=== PATIENT | female | born 1940 | race Caucasian/White ===

== ENCOUNTER 2017-01-18 17:32 | Inpatient (IN) ==
[2017-01-18] MEDS ORDERED: FUROSEMIDE 40 MG/4 ML VIAL IV STA (17:57)
[2017-01-18] MEDS ORDERED: DILTIAZEM 50 MG/10 ML VIAL IV ONE (18:17)
[2017-01-18] MEDS ORDERED: DILTIAZEM 100 MG VIAL.ADD IV ONE (18:17)
[2017-01-18] MEDS ORDERED: SODIUM CHLORIDE 0.9% 100 ML IV ONE (18:18)
[2017-01-18] MEDS: DILTIAZEM INJ 100 MG in SODIUM CHLORIDE 0.9% 100 ML IV SCH (18:47)
[2017-01-18] MEDS ORDERED: DILTIAZEM 50 MG/10 ML VIAL IV STA (18:48)
[2017-01-18 19:09] LABS: Basophils # 0.1 10*3/uL (0.0-0.2); Basophils % 0.6 % (0.0-0.8); Eosinophils # 0.4 10*3/uL (0.0-0.87); Eosinophils % 4.2 % (0.00-10.9); Hematocrit 32.9 VOL% (35.7-47.0); Hemoglobin 11.3 GM/DL (12.0-16.0); Immature Granulocytes % 0.4 %; Immature Granulocytes Absolute 0.03 #; Lymphocytes # 2.7 10*3/uL (1.4-4.0); Lymphocytes % 31.7 % (21.3-54.2); Mean Corpuscular HGB Conc 34.3 GM/DL (32-36); Mean Corpuscular Hemoglobin 34 PG (27-34); Mean Platelet Volume 10.1 FL (9.6-12.0); Monocytes # 1.2 10*3/uL (0.11-0.8); Monocytes % 13.8 % (1.7-12.7); Neutrophils # 4.2 10*3/uL (1.4-7.4); Neutrophils % 49.3 % (38.7-73.9); Platelet Count 217 T/CUMM (130-400); Red Blood Count 3.29 MC/CUMM (3.8-5.5); Red Cell Distribution Width 14.6 % (9.3-17.3); White Blood Count 8.6 T/CUMM (4-12)
[2017-01-18 19:40] LABS: Blood Urea Nitrogen 28 MG/DL (7-18); Calcium 9.3 MG/DL (8.5-10.1); Glucose 94 MG/DL (74-106); Magnesium 2.2 MG/DL (1.8-2.4); Potassium 4.4 MMOL/L (3.5-5.1); Sodium 143 MMOL/L (136-145); Troponin I Only < 0.015 NG/ML (0.00-0.045)
[2017-01-18] MEDS ORDERED: ONDANSETRON 4 MG/2 ML VIAL IV PRN (22:35)
[2017-01-18] MEDS ORDERED: MORPHINE 2 MG/1 ML SYRINGE IV PRN (22:35)
[2017-01-18] MEDS ORDERED: GLUCAGON 1 MG VIAL IM PRN (22:35)
[2017-01-18] MEDS ORDERED: ACETAMINOPHEN 325 MG TABLET PO PRN (22:35)
[2017-01-18] MEDS ORDERED: ENOXAPARIN 40 MG/0.4 ML SYRINGE SUBCUT SCH (22:35)
[2017-01-18] MEDS ORDERED: DEXTROSE 50% 25 GM/50 ML VIAL IV PRN (22:35)
[2017-01-18] MEDS: SODIUM CHLORIDE 0.45% 1,000 ML IV SCH (22:47)
[2017-01-19] MEDS: INSULIN REGULAR 100 UNIT/ML SUBCUT SCH ×6 (06:11→21:19)
[2017-01-19] MEDS: DILTIAZEM INJ 100 MG in SODIUM CHLORIDE 0.9% 100 ML IV SCH ×2 (09:37→18:41)
[2017-01-19] MEDS: ASPIRIN EC 81 MG TABLET PO SCH (09:38)
[2017-01-19] MEDS: PANTOPRAZOLE 40 MG TABLET PO SCH (09:38)
[2017-01-19] MEDS: CALCIUM (CARBONATE)/VITAMIN D 600 MG-400 UNIT TABLET PO SCH (09:38)
[2017-01-19] MEDS: FUROSEMIDE 20 MG TABLET PO SCH (09:38)
[2017-01-19] MEDS: DOCUSATE SODIUM 100 MG CAPSULE PO SCH ×2 (09:38→21:19)
[2017-01-19] MEDS: GABAPENTIN 600 MG TABLET PO SCH ×4 (10:22→21:18)
[2017-01-19] MEDS: SODIUM CHLORIDE 0.45% 1,000 ML IV SCH (12:25)
[2017-01-19] MEDS ORDERED: CARVEDILOL 6.25 MG TABLET PO SCH (12:30)
[2017-01-19] MEDS: APIXABAN 5 MG TABLET PO SCH ×2 (13:12→21:18)
[2017-01-19] MEDS: LORATADINE 10 MG TABLET PO PRN (15:26)
[2017-01-19] MEDS ORDERED: CARVEDILOL 12.5 MG TABLET PO ONE (16:46)
[2017-01-19] MEDS: CARVEDILOL 25 MG TABLET PO SCH (21:22)
[2017-01-20 06:14] LABS: Basophils % 0.5 % (0.0-0.8); Eosinophils # 0.3 10*3/uL (0.0-0.87); Eosinophils % 5.9 % (0.00-10.9); Hematocrit 30.2 VOL% (35.7-47.0); Hemoglobin 10.4 GM/DL (12.0-16.0); Immature Granulocytes % 0.3 %; Immature Granulocytes Absolute 0.02 #; Lymphocytes # 2.3 10*3/uL (1.4-4.0); Mean Corpuscular HGB Conc 34.4 GM/DL (32-36); Mean Corpuscular Hemoglobin 34 PG (27-34); Mean Corpuscular Volume 99.3 FL (87-102); Mean Platelet Volume 10.2 FL (9.6-12.0); Monocytes # 0.8 10*3/uL (0.11-0.8); Monocytes % 14.2 % (1.7-12.7); Neutrophils # 2.3 10*3/uL (1.4-7.4); Neutrophils % 39.1 % (38.7-73.9); Platelet Count 203 T/CUMM (130-400); Red Blood Count 3.04 MC/CUMM (3.8-5.5); Red Cell Distribution Width 14.8 % (9.3-17.3); White Blood Count 5.8 T/CUMM (4-12)
[2017-01-20 06:44] LABS: Calcium 8.9 MG/DL (8.5-10.1); Magnesium 2.2 MG/DL (1.8-2.4); Osmolality,Calculated 289.8 MOS/KG (273-304); Potassium 3.7 MMOL/L (3.5-5.1)
[2017-01-20 06:47] LABS: Risk Ratio 3.29; VLDL CHOLESTEROL 31.6 MG/DL
[2017-01-20] MEDS: GABAPENTIN 600 MG TABLET PO SCH ×4 (08:07→21:19)
[2017-01-20] MEDS: APIXABAN 5 MG TABLET PO SCH ×2 (08:07→21:15)
[2017-01-20] MEDS: ASPIRIN EC 81 MG TABLET PO SCH (08:07)
[2017-01-20] MEDS: PANTOPRAZOLE 40 MG TABLET PO SCH (08:07)
[2017-01-20] MEDS: FUROSEMIDE 20 MG TABLET PO SCH (08:07)
[2017-01-20] MEDS: DOCUSATE SODIUM 100 MG CAPSULE PO SCH ×2 (08:07→21:15)
[2017-01-20] MEDS: CALCIUM (CARBONATE)/VITAMIN D 600 MG-400 UNIT TABLET PO SCH (08:07)
[2017-01-20] MEDS: CARVEDILOL 25 MG TABLET PO SCH ×2 (08:07→21:15)
[2017-01-20] MEDS: INSULIN REGULAR 100 UNIT/ML SUBCUT SCH ×4 (08:08→20:30)
[2017-01-20 10:46] LABS: Apearance,Urine Slightly Hazy (Clear); Bacteria,Urine Occasional /HPF (Few); Bilirubin,Urine Negative (Negative); Blood, Urine Negative (Negative); Glucose,Urine (UA) Negative (Negative); Hyaline Casts,Urine 2 /LPF (0-3); Ketones,Urine Negative (Negative); Mucus,Urine Occasional /LPF (Occasional); Nitrite,Urine Negative (Negative); Protein,Urine Negative; RBC,Urine 1 /HPF (0-4); Squamous Epithelial Cell,Urine Occasional /HPF (0-10); Urine Color Yellow (Yellow); Urine Specific Gravity 1.011 (1.001-1.035); Urine Urobilinogen < 2.0 EU/DL (0.2-1.0); WBC,Urine 23 /HPF (0-6)
[2017-01-20] MEDS: POLYETHYLENE GLYCOL POWDER 17 GM PACK PO PRN (13:45)
[2017-01-20] MEDS ORDERED: DIGOXIN 0.5 MG/2 ML AMP IV ONE (14:29)
[2017-01-20] MEDS: CIPROFLOXACIN 500 MG TABLET PO SCH ×2 (14:44→21:15)
[2017-01-20] MEDS: DILTIAZEM INJ 100 MG in SODIUM CHLORIDE 0.9% 100 ML IV SCH (18:58)
[2017-01-20] MEDS: LORATADINE 10 MG TABLET PO PRN (21:15)
[2017-01-20] MEDS: DILTIAZEM 30 MG TABLET PO SCH (21:15)
[2017-01-21 04:34] LABS: Basophils % 0.3 % (0.0-0.8); Eosinophils # 0.4 10*3/uL (0.0-0.87); Eosinophils % 6.2 % (0.00-10.9); Hematocrit 29.6 VOL% (35.7-47.0); Hemoglobin 10.2 GM/DL (12.0-16.0); Immature Granulocytes % 0.2 %; Immature Granulocytes Absolute 0.01 #; Lymphocytes # 2.4 10*3/uL (1.4-4.0); Lymphocytes % 39.1 % (21.3-54.2); Mean Corpuscular HGB Conc 34.5 GM/DL (32-36); Mean Corpuscular Hemoglobin 34 PG (27-34); Mean Corpuscular Volume 99.3 FL (87-102); Mean Platelet Volume 9.7 FL (9.6-12.0); Monocytes # 0.9 10*3/uL (0.11-0.8); Monocytes % 14.7 % (1.7-12.7); Neutrophils # 2.4 10*3/uL (1.4-7.4); Neutrophils % 39.5 % (38.7-73.9); Platelet Count 206 T/CUMM (130-400); Red Blood Count 2.98 MC/CUMM (3.8-5.5); Red Cell Distribution Width 14.6 % (9.3-17.3); White Blood Count 6.2 T/CUMM (4-12)
[2017-01-21 05:15] LABS: Calcium 8.8 MG/DL (8.5-10.1); Magnesium 2.3 MG/DL (1.8-2.4); Osmolality,Calculated 291.8 MOS/KG (273-304); Potassium 3.8 MMOL/L (3.5-5.1)
[2017-01-21] MEDS: DILTIAZEM INJ 100 MG in SODIUM CHLORIDE 0.9% 100 ML IV SCH ×2 (05:46→19:33)
[2017-01-21] MEDS: DILTIAZEM 30 MG TABLET PO SCH ×3 (08:36→17:31)
[2017-01-21] MEDS: GABAPENTIN 600 MG TABLET PO SCH ×4 (08:36→21:30)
[2017-01-21] MEDS: CALCIUM (CARBONATE)/VITAMIN D 600 MG-400 UNIT TABLET PO SCH (08:36)
[2017-01-21] MEDS: CIPROFLOXACIN 500 MG TABLET PO SCH ×2 (08:36→21:31)
[2017-01-21] MEDS: CARVEDILOL 25 MG TABLET PO SCH ×2 (08:36→21:31)
[2017-01-21] MEDS: APIXABAN 5 MG TABLET PO SCH ×2 (08:36→21:30)
[2017-01-21] MEDS: FUROSEMIDE 20 MG TABLET PO SCH (08:36)
[2017-01-21] MEDS: DOCUSATE SODIUM 100 MG CAPSULE PO SCH ×2 (08:36→21:30)
[2017-01-21] MEDS: ASPIRIN EC 81 MG TABLET PO SCH (08:37)
[2017-01-21] MEDS: PANTOPRAZOLE 40 MG TABLET PO SCH (08:37)
[2017-01-21] MEDS: INSULIN REGULAR 100 UNIT/ML SUBCUT SCH ×4 (08:40→20:39)
[2017-01-21] MEDS: POLYETHYLENE GLYCOL POWDER 17 GM PACK PO PRN (12:50)
[2017-01-21] MEDS: DILTIAZEM 60 MG TABLET PO SCH (21:30)
[2017-01-21] MEDS: LORATADINE 10 MG TABLET PO PRN (21:31)
[2017-01-22 05:09] LABS: Basophils # 0.1 10*3/uL (0.0-0.2); Basophils % 0.8 % (0.0-0.8); Eosinophils # 0.4 10*3/uL (0.0-0.87); Eosinophils % 5.6 % (0.00-10.9); Hematocrit 30.1 VOL% (35.7-47.0); Hemoglobin 10.2 GM/DL (12.0-16.0); Immature Granulocytes % 0.3 %; Immature Granulocytes Absolute 0.02 #; Lymphocytes # 2.7 10*3/uL (1.4-4.0); Lymphocytes % 41.3 % (21.3-54.2); Mean Corpuscular HGB Conc 33.9 GM/DL (32-36); Mean Corpuscular Hemoglobin 34 PG (27-34); Mean Platelet Volume 9.6 FL (9.6-12.0); Monocytes % 15.1 % (1.7-12.7); Neutrophils # 2.5 10*3/uL (1.4-7.4); Neutrophils % 36.9 % (38.7-73.9); Platelet Count 219 T/CUMM (130-400); Red Blood Count 3.01 MC/CUMM (3.8-5.5); Red Cell Distribution Width 14.3 % (9.3-17.3); White Blood Count 6.6 T/CUMM (4-12)
[2017-01-22 05:35] LABS: Calcium 8.9 MG/DL (8.5-10.1); Magnesium 2.3 MG/DL (1.8-2.4)
[2017-01-22 06:45] LABS: Platelet Estimate Normal; Polychromasia Few
[2017-01-22] MEDS: INSULIN REGULAR 100 UNIT/ML SUBCUT SCH ×4 (08:50→21:22)
[2017-01-22] MEDS: CARVEDILOL 25 MG TABLET PO SCH ×2 (09:14→21:21)
[2017-01-22] MEDS: GABAPENTIN 600 MG TABLET PO SCH ×4 (09:14→21:22)
[2017-01-22] MEDS: FUROSEMIDE 20 MG TABLET PO SCH (09:14)
[2017-01-22] MEDS: APIXABAN 5 MG TABLET PO SCH ×2 (09:14→21:21)
[2017-01-22] MEDS: DOCUSATE SODIUM 100 MG CAPSULE PO SCH ×2 (09:14→21:20)
[2017-01-22] MEDS: DILTIAZEM 60 MG TABLET PO SCH ×4 (09:14→21:20)
[2017-01-22] MEDS: CALCIUM (CARBONATE)/VITAMIN D 600 MG-400 UNIT TABLET PO SCH (09:14)
[2017-01-22] MEDS: ASPIRIN EC 81 MG TABLET PO SCH (09:14)
[2017-01-22] MEDS: CIPROFLOXACIN 500 MG TABLET PO SCH ×2 (09:15→21:21)
[2017-01-22] MEDS: PANTOPRAZOLE 40 MG TABLET PO SCH (09:15)
[2017-01-22] MEDS: POLYETHYLENE GLYCOL POWDER 17 GM PACK PO PRN (09:15)
[2017-01-22] MEDS: LOVASTATIN 20 MG TABLET PO SCH (17:17)
[2017-01-22] MEDS: DILTIAZEM INJ 100 MG in SODIUM CHLORIDE 0.9% 100 ML IV SCH (19:06)
[2017-01-23 06:00] LABS: Basophils % 0.3 % (0.0-0.8); Eosinophils # 0.4 10*3/uL (0.0-0.87); Eosinophils % 5.6 % (0.00-10.9); Hematocrit 30.5 VOL% (35.7-47.0); Hemoglobin 10.4 GM/DL (12.0-16.0); Immature Granulocytes % 0.4 %; Immature Granulocytes Absolute 0.03 #; Lymphocytes # 2.4 10*3/uL (1.4-4.0); Mean Corpuscular HGB Conc 34.1 GM/DL (32-36); Mean Corpuscular Hemoglobin 34 PG (27-34); Mean Corpuscular Volume 100.3 FL (87-102); Mean Platelet Volume 10.1 FL (9.6-12.0); Monocytes # 1.1 10*3/uL (0.11-0.8); Monocytes % 14.4 % (1.7-12.7); Neutrophils # 3.5 10*3/uL (1.4-7.4); Neutrophils % 47.3 % (38.7-73.9); Platelet Count 241 T/CUMM (130-400); Red Blood Count 3.04 MC/CUMM (3.8-5.5); Red Cell Distribution Width 14.5 % (9.3-17.3); White Blood Count 7.3 T/CUMM (4-12)
[2017-01-23 06:40] LABS: Calcium 8.8 MG/DL (8.5-10.1); Magnesium 2.3 MG/DL (1.8-2.4); Potassium 4.3 MMOL/L (3.5-5.1)
[2017-01-23] MEDS: GABAPENTIN 600 MG TABLET PO SCH ×4 (08:53→21:20)
[2017-01-23] MEDS: INSULIN REGULAR 100 UNIT/ML SUBCUT SCH ×4 (08:53→21:19)
[2017-01-23] MEDS: CIPROFLOXACIN 500 MG TABLET PO SCH ×2 (08:54→21:19)
[2017-01-23] MEDS: FUROSEMIDE 20 MG TABLET PO SCH (08:54)
[2017-01-23] MEDS: DOCUSATE SODIUM 100 MG CAPSULE PO SCH ×2 (08:54→21:19)
[2017-01-23] MEDS: DILTIAZEM 60 MG TABLET PO SCH ×4 (08:54→21:19)
[2017-01-23] MEDS: CALCIUM (CARBONATE)/VITAMIN D 600 MG-400 UNIT TABLET PO SCH (08:54)
[2017-01-23] MEDS: APIXABAN 5 MG TABLET PO SCH ×2 (08:54→21:19)
[2017-01-23] MEDS: ASPIRIN EC 81 MG TABLET PO SCH (08:54)
[2017-01-23] MEDS: CARVEDILOL 25 MG TABLET PO SCH (08:55)
[2017-01-23] MEDS: PANTOPRAZOLE 40 MG TABLET PO SCH (08:55)
[2017-01-23] MEDS: POLYETHYLENE GLYCOL POWDER 17 GM PACK PO PRN (10:51)
[2017-01-23] MEDS: BISOPROLOL 5 MG TABLET PO SCH ×2 (12:19→21:19)
[2017-01-23] MEDS: LOVASTATIN 20 MG TABLET PO SCH (16:54)
[2017-01-24 06:19] LABS: Basophils % 0.5 % (0.0-0.8); Eosinophils # 0.4 10*3/uL (0.0-0.87); Eosinophils % 5.7 % (0.00-10.9); Hematocrit 31.4 VOL% (35.7-47.0); Hemoglobin 10.6 GM/DL (12.0-16.0); Immature Granulocytes % 0.3 %; Immature Granulocytes Absolute 0.02 #; Lymphocytes # 2.6 10*3/uL (1.4-4.0); Lymphocytes % 33.9 % (21.3-54.2); Mean Corpuscular HGB Conc 33.8 GM/DL (32-36); Mean Corpuscular Hemoglobin 33 PG (27-34); Mean Corpuscular Volume 99.1 FL (87-102); Mean Platelet Volume 10.1 FL (9.6-12.0); Monocytes # 1.2 10*3/uL (0.11-0.8); Monocytes % 15.6 % (1.7-12.7); Neutrophils # 3.4 10*3/uL (1.4-7.4); Platelet Count 250 T/CUMM (130-400); Red Blood Count 3.17 MC/CUMM (3.8-5.5); Red Cell Distribution Width 14.5 % (9.3-17.3); White Blood Count 7.6 T/CUMM (4-12)
[2017-01-24 06:52] LABS: Calcium 8.6 MG/DL (8.5-10.1); Magnesium 2.4 MG/DL (1.8-2.4)
[2017-01-24 06:55] LABS: Eosinophils 9 % (0-10); Giant Platelets Few; Hypochromasia 1+; Lymphocytes 25 % (20-55); Platelet Estimate Adequate; Segmented Neutrophils 47 % (50-85); Total Cells Counted 100
[2017-01-24] MEDS: DILTIAZEM INJ 100 MG in SODIUM CHLORIDE 0.9% 100 ML IV SCH ×2 (09:01→22:28)
[2017-01-24] MEDS: INSULIN REGULAR 100 UNIT/ML SUBCUT SCH ×4 (09:01→22:25)
[2017-01-24] MEDS: PANTOPRAZOLE 40 MG TABLET PO SCH (09:02)
[2017-01-24] MEDS: APIXABAN 5 MG TABLET PO SCH ×2 (09:02→22:21)
[2017-01-24] MEDS: DILTIAZEM 60 MG TABLET PO SCH ×4 (09:03→22:21)
[2017-01-24] MEDS: ASPIRIN EC 81 MG TABLET PO SCH (09:03)
[2017-01-24] MEDS: GABAPENTIN 600 MG TABLET PO SCH ×4 (09:03→22:27)
[2017-01-24] MEDS: FUROSEMIDE 20 MG TABLET PO SCH (09:03)
[2017-01-24] MEDS: CALCIUM (CARBONATE)/VITAMIN D 600 MG-400 UNIT TABLET PO SCH (09:03)
[2017-01-24] MEDS: BISOPROLOL 5 MG TABLET PO SCH ×2 (09:03→22:21)
[2017-01-24] MEDS: DOCUSATE SODIUM 100 MG CAPSULE PO SCH ×2 (09:03→22:23)
[2017-01-24] MEDS: CIPROFLOXACIN 500 MG TABLET PO SCH ×2 (09:03→22:21)
[2017-01-24] MEDS: POLYETHYLENE GLYCOL POWDER 17 GM PACK PO PRN (09:08)
[2017-01-24] MEDS: LOVASTATIN 20 MG TABLET PO SCH (16:59)
[2017-01-25 05:49] LABS: Basophils % 0.3 % (0.0-0.8); Eosinophils # 0.4 10*3/uL (0.0-0.87); Eosinophils % 3.8 % (0.00-10.9); Hematocrit 31.2 VOL% (35.7-47.0); Hemoglobin 10.7 GM/DL (12.0-16.0); Immature Granulocytes % 0.3 %; Immature Granulocytes Absolute 0.03 #; Lymphocytes # 2.8 10*3/uL (1.4-4.0); Mean Corpuscular HGB Conc 34.3 GM/DL (32-36); Mean Corpuscular Hemoglobin 34 PG (27-34); Mean Corpuscular Volume 99.4 FL (87-102); Monocytes # 1.6 10*3/uL (0.11-0.8); Monocytes % 17.4 % (1.7-12.7); Neutrophils # 4.5 10*3/uL (1.4-7.4); Neutrophils % 48.2 % (38.7-73.9); Platelet Count 246 T/CUMM (130-400); Red Blood Count 3.14 MC/CUMM (3.8-5.5); Red Cell Distribution Width 14.4 % (9.3-17.3); White Blood Count 9.3 T/CUMM (4-12)
[2017-01-25 06:11] LABS: Calcium 8.8 MG/DL (8.5-10.1); Magnesium 2.2 MG/DL (1.8-2.4); Osmolality,Calculated 287.3 MOS/KG (273-304); Potassium 4.6 MMOL/L (3.5-5.1)
[2017-01-25 06:14] LABS: Eosinophils 4 % (0-10); Giant Platelets Few; Hypochromasia 1+; Lymphocytes 30 % (20-55); Platelet Estimate Adequate; Segmented Neutrophils 54 % (50-85); Total Cells Counted 100
[2017-01-25] MEDS: INSULIN REGULAR 100 UNIT/ML SUBCUT SCH ×2 (08:09→11:47)
[2017-01-25] MEDS: APIXABAN 5 MG TABLET PO SCH (10:21)
[2017-01-25] MEDS: BISOPROLOL 5 MG TABLET PO SCH (10:21)
[2017-01-25] MEDS: GABAPENTIN 600 MG TABLET PO SCH (10:21)
[2017-01-25] MEDS: DILTIAZEM 60 MG TABLET PO SCH ×2 (10:21→13:54)
[2017-01-25] MEDS: CALCIUM (CARBONATE)/VITAMIN D 600 MG-400 UNIT TABLET PO SCH (10:22)
[2017-01-25] MEDS: CIPROFLOXACIN 500 MG TABLET PO SCH (10:22)
[2017-01-25] MEDS: FUROSEMIDE 20 MG TABLET PO SCH (10:22)
[2017-01-25] MEDS: ASPIRIN EC 81 MG TABLET PO SCH (10:22)
[2017-01-25] MEDS: PANTOPRAZOLE 40 MG TABLET PO SCH (10:22)
[2017-01-25] MEDS: DOCUSATE SODIUM 100 MG CAPSULE PO SCH (10:22)
[2017-01-25 12:10] VITALS: BP 130/71
== END 2017-01-25 14:31 | disposition home or self-care (01) | DRG 309 ==
LOC: N.ED 17:32 → SUATTDRO 20:53 → N.EDINP 20:53 → N.TELES 21:12
PROVIDERS: ADMIT Internal Medicine; ATTEND Internal Medicine

== ENCOUNTER 2017-02-02 10:41 | Inpatient (IN) ==
[2017-02-02] MEDS ORDERED: ONDANSETRON 4 MG/2 ML VIAL IV STA (11:33)
[2017-02-02] MEDS ORDERED: PANTOPRAZOLE 40 MG VIAL IV STA (11:33)
[2017-02-02] MEDS ORDERED: DILTIAZEM 50 MG/10 ML VIAL IV STA (11:42)
[2017-02-02] MEDS ORDERED: PANTOPRAZOLE 40 MG VIAL IV ONE ×2 (11:42→15:19)
[2017-02-02] MEDS ORDERED: ONDANSETRON 4 MG/2 ML VIAL ONE (11:43)
[2017-02-02] MEDS ORDERED: DILTIAZEM 50 MG/10 ML VIAL IV ONE ×2 (12:17→12:18)
[2017-02-02] MEDS ORDERED: SODIUM CHLORIDE 0.9% 100 ML IV ONE (12:18)
[2017-02-02] MEDS: DILTIAZEM INJ 100 MG in SODIUM CHLORIDE 0.9% 100 ML IV SCH ×2 (12:32→22:45)
[2017-02-02 12:49] LABS: Basophils % 0.3 % (0.0-0.8); Eosinophils # 0.1 10*3/uL (0.0-0.87); Eosinophils % 0.8 % (0.00-10.9); Hematocrit 30.9 VOL% (35.7-47.0); Hemoglobin 10.2 GM/DL (12.0-16.0); Immature Granulocytes % 0.6 %; Immature Granulocytes Absolute 0.06 #; Mean Corpuscular Hemoglobin 33 PG (27-34); Mean Corpuscular Volume 99.4 FL (87-102); Mean Platelet Volume 9.7 FL (9.6-12.0); Monocytes # 1.3 10*3/uL (0.11-0.8); Monocytes % 12.1 % (1.7-12.7); Neutrophils # 7.1 10*3/uL (1.4-7.4); Neutrophils % 67.2 % (38.7-73.9); Platelet Count 331 T/CUMM (130-400); Red Blood Count 3.11 MC/CUMM (3.8-5.5); Red Cell Distribution Width 13.7 % (9.3-17.3); White Blood Count 10.5 T/CUMM (4-12)
[2017-02-02 13:00] LABS: INR 1.1; PT Patient Result 11.7 SECS; Partial Thromboplastin Time 22.3 SECS (0-40)
[2017-02-02 13:16] LABS: Albumin 3.4 G/DL (3.4-5.0); Bilirubin,Total 0.9 MG/DL (0.2-1.0); Calcium 8.8 MG/DL (8.5-10.1); Osmolality,Calculated 286.3 MOS/KG (273-304); Potassium 3.9 MMOL/L (3.5-5.1); Total Protein 7.2 G/DL (6.4-8.3)
[2017-02-02] MEDS ORDERED: SODIUM CHLORIDE 0.45% 1,000 ML IV SCH (15:30)
[2017-02-02] MEDS ORDERED: GLUCAGON 1 MG VIAL IM PRN (16:38)
[2017-02-02] MEDS ORDERED: DEXTROSE 50% 25 GM/50 ML VIAL IV PRN (16:38)
[2017-02-02 16:42] LABS: CKMB % 13.3 %; Troponin I Only < 0.015 NG/ML (0.00-0.045)
[2017-02-02 17:18] LABS: Free T4 (Free Thyroxine) 1.28 NG/DL (0.76-1.46); Thyroid Stimulating Hormone 2.91 uIU/ml (0.358-3.74)
[2017-02-02] MEDS: INSULIN REGULAR 100 UNIT/ML SUBCUT SCH (18:02)
[2017-02-02] MEDS: SODIUM CHLORIDE 0.9% 1,000 ML IV SCH (18:11)
[2017-02-02 18:21] LABS: Apearance,Urine CLEAR (Clear); Bilirubin,Urine Negative (Negative); Blood, Urine Negative (Negative); Glucose,Urine (UA) Negative (Negative); Ketones,Urine Negative (Negative); Mucus,Urine Occasional /LPF (Occasional); Nitrite,Urine Negative (Negative); Protein,Urine Negative; RBC,Urine <1 /HPF (0-4); Squamous Epithelial Cell,Urine Occasional /HPF (0-10); Urine Color Yellow (Yellow); Urine Specific Gravity 1.012 (1.001-1.035); Urine Urobilinogen < 2.0 EU/DL (0.2-1.0); WBC,Urine 5 /HPF (0-6)
[2017-02-02] MEDS: DILTIAZEM 30 MG TABLET PO SCH ×2 (19:04→22:44)
[2017-02-02] MEDS ORDERED: GABAPENTIN 100 MG CAPSULE ONE (21:16)
[2017-02-02] MEDS: GABAPENTIN 600 MG TABLET PO SCH (22:44)
[2017-02-02] MEDS: BISOPROLOL 5 MG TABLET PO SCH (22:44)
[2017-02-03] MEDS: INSULIN REGULAR 100 UNIT/ML SUBCUT SCH ×5 (01:32→23:35)
[2017-02-03] MEDS: DILTIAZEM INJ 100 MG in SODIUM CHLORIDE 0.9% 100 ML IV SCH ×2 (05:05→11:25)
[2017-02-03 05:28] LABS: Basophils % 0.4 % (0.0-0.8); Eosinophils # 0.3 10*3/uL (0.0-0.87); Eosinophils % 3.6 % (0.00-10.9); Hematocrit 25.9 VOL% (35.7-47.0); Hemoglobin 8.6 GM/DL (12.0-16.0); Immature Granulocytes % 0.5 %; Immature Granulocytes Absolute 0.04 #; Lymphocytes # 2.3 10*3/uL (1.4-4.0); Lymphocytes % 29.3 % (21.3-54.2); Mean Corpuscular HGB Conc 33.2 GM/DL (32-36); Mean Corpuscular Hemoglobin 33 PG (27-34); Mean Corpuscular Volume 100.4 FL (87-102); Mean Platelet Volume 9.7 FL (9.6-12.0); Monocytes % 12.4 % (1.7-12.7); Neutrophils # 4.2 10*3/uL (1.4-7.4); Neutrophils % 53.8 % (38.7-73.9); Platelet Count 253 T/CUMM (130-400); Red Blood Count 2.58 MC/CUMM (3.8-5.5); Red Cell Distribution Width 13.8 % (9.3-17.3); White Blood Count 7.9 T/CUMM (4-12)
[2017-02-03 06:18] LABS: Calcium 8.4 MG/DL (8.5-10.1); Osmolality,Calculated 289.1 MOS/KG (273-304)
[2017-02-03] MEDS: GABAPENTIN 600 MG TABLET PO SCH ×3 (08:54→20:09)
[2017-02-03] MEDS: BISOPROLOL 5 MG TABLET PO SCH ×2 (08:54→20:10)
[2017-02-03] MEDS: DILTIAZEM 30 MG TABLET PO SCH ×4 (08:55→20:10)
[2017-02-03] MEDS: PANTOPRAZOLE 40 MG VIAL IV SCH (08:55)
[2017-02-03] MEDS: SODIUM CHLORIDE 0.9% 1,000 ML IV SCH ×2 (10:15)
[2017-02-03] MEDS: LOVASTATIN 20 MG TABLET PO SCH (16:55)
[2017-02-04 05:01] LABS: Basophils % 0.4 % (0.0-0.8); Eosinophils # 0.3 10*3/uL (0.0-0.87); Eosinophils % 4.5 % (0.00-10.9); Hematocrit 27.1 VOL% (35.7-47.0); Hemoglobin 8.9 GM/DL (12.0-16.0); Immature Granulocytes % 0.8 %; Immature Granulocytes Absolute 0.06 #; Lymphocytes # 2.2 10*3/uL (1.4-4.0); Lymphocytes % 30.8 % (21.3-54.2); Mean Corpuscular HGB Conc 32.8 GM/DL (32-36); Mean Corpuscular Hemoglobin 33 PG (27-34); Mean Platelet Volume 9.6 FL (9.6-12.0); Monocytes % 13.2 % (1.7-12.7); Neutrophils # 3.6 10*3/uL (1.4-7.4); Neutrophils % 50.3 % (38.7-73.9); Platelet Count 279 T/CUMM (130-400); Red Blood Count 2.71 MC/CUMM (3.8-5.5); Red Cell Distribution Width 13.7 % (9.3-17.3); White Blood Count 7.2 T/CUMM (4-12)
[2017-02-04 05:38] LABS: Calcium 8.4 MG/DL (8.5-10.1); Osmolality,Calculated 281.4 MOS/KG (273-304); Potassium 3.9 MMOL/L (3.5-5.1)
[2017-02-04] MEDS: INSULIN REGULAR 100 UNIT/ML SUBCUT SCH ×4 (05:45→20:16)
[2017-02-04] MEDS ORDERED: SODIUM CHLORIDE 0.9% 100 ML IV ONE (07:54)
[2017-02-04] MEDS: DILTIAZEM INJ 100 MG in SODIUM CHLORIDE 0.9% 100 ML IV SCH ×3 (07:59→21:00)
[2017-02-04] MEDS: BISOPROLOL 5 MG TABLET PO SCH ×2 (08:00→20:16)
[2017-02-04] MEDS: PANTOPRAZOLE 40 MG VIAL IV SCH (08:00)
[2017-02-04] MEDS: DILTIAZEM 30 MG TABLET PO SCH ×3 (08:01→17:12)
[2017-02-04] MEDS: MULTIVITAMIN (CENTRUM) TABLET PO SCH (08:01)
[2017-02-04] MEDS: GABAPENTIN 600 MG TABLET PO SCH ×4 (08:01→20:16)
[2017-02-04] MEDS: LOVASTATIN 20 MG TABLET PO SCH (17:12)
[2017-02-04] MEDS: DILTIAZEM CD 120 MG CAPSULE PO SCH (20:16)
[2017-02-05 05:56] LABS: Basophils % 0.3 % (0.0-0.8); Eosinophils # 0.2 10*3/uL (0.0-0.87); Eosinophils % 2.2 % (0.00-10.9); Hematocrit 26.9 VOL% (35.7-47.0); Hemoglobin 9.1 GM/DL (12.0-16.0); Immature Granulocytes % 0.6 %; Immature Granulocytes Absolute 0.05 #; Lymphocytes # 1.8 10*3/uL (1.4-4.0); Lymphocytes % 23.4 % (21.3-54.2); Mean Corpuscular HGB Conc 33.8 GM/DL (32-36); Mean Corpuscular Hemoglobin 33 PG (27-34); Mean Corpuscular Volume 98.5 FL (87-102); Mean Platelet Volume 9.6 FL (9.6-12.0); Monocytes % 12.9 % (1.7-12.7); Neutrophils # 4.7 10*3/uL (1.4-7.4); Neutrophils % 60.6 % (38.7-73.9); Platelet Count 280 T/CUMM (130-400); Red Blood Count 2.73 MC/CUMM (3.8-5.5); Red Cell Distribution Width 13.7 % (9.3-17.3); White Blood Count 7.8 T/CUMM (4-12)
[2017-02-05 06:28] LABS: Calcium 8.8 MG/DL (8.5-10.1); Magnesium 2.1 MG/DL (1.8-2.4); Osmolality,Calculated 276.7 MOS/KG (273-304); Potassium 3.9 MMOL/L (3.5-5.1)
[2017-02-05] MEDS ORDERED: GLUCAGON 1 MG VIAL IM PRN (08:17)
[2017-02-05] MEDS ORDERED: DEXTROSE 50% 25 GM/50 ML VIAL IV PRN (08:17)
[2017-02-05] MEDS: DILTIAZEM INJ 100 MG in SODIUM CHLORIDE 0.9% 100 ML IV SCH ×2 (08:59→13:30)
[2017-02-05] MEDS: POLYETHYLENE GLYCOL POWDER 17 GM PACK PO PRN (09:24)
[2017-02-05] MEDS: BISOPROLOL 5 MG TABLET PO SCH ×2 (09:25→22:23)
[2017-02-05] MEDS: DILTIAZEM CD 120 MG CAPSULE PO SCH ×2 (09:25→22:23)
[2017-02-05] MEDS: MULTIVITAMIN (CENTRUM) TABLET PO SCH (09:25)
[2017-02-05] MEDS: GABAPENTIN 600 MG TABLET PO SCH ×3 (09:26→22:22)
[2017-02-05] MEDS: PANTOPRAZOLE 40 MG VIAL IV SCH (09:27)
[2017-02-05] MEDS: INSULIN REGULAR 100 UNIT/ML SUBCUT SCH ×4 (09:29→22:25)
[2017-02-05] MEDS: LOVASTATIN 20 MG TABLET PO SCH (16:44)
[2017-02-06 03:20] LABS: Basophils % 0.2 % (0.0-0.8); Eosinophils # 0.3 10*3/uL (0.0-0.87); Eosinophils % 2.9 % (0.00-10.9); Hematocrit 26.9 VOL% (35.7-47.0); Immature Granulocytes % 0.7 %; Immature Granulocytes Absolute 0.06 #; Lymphocytes % 23.3 % (21.3-54.2); Mean Corpuscular HGB Conc 33.5 GM/DL (32-36); Mean Corpuscular Hemoglobin 33 PG (27-34); Mean Corpuscular Volume 98.9 FL (87-102); Mean Platelet Volume 9.3 FL (9.6-12.0); Monocytes # 1.1 10*3/uL (0.11-0.8); Monocytes % 12.5 % (1.7-12.7); Neutrophils # 5.2 10*3/uL (1.4-7.4); Neutrophils % 60.4 % (38.7-73.9); Platelet Count 268 T/CUMM (130-400); Red Blood Count 2.72 MC/CUMM (3.8-5.5); Red Cell Distribution Width 13.6 % (9.3-17.3); White Blood Count 8.5 T/CUMM (4-12)
[2017-02-06 03:54] LABS: Calcium 8.5 MG/DL (8.5-10.1); Osmolality,Calculated 282.4 MOS/KG (273-304); Potassium 3.8 MMOL/L (3.5-5.1)
[2017-02-06] MEDS: INSULIN REGULAR 100 UNIT/ML SUBCUT SCH ×4 (08:20→21:34)
[2017-02-06] MEDS: BISOPROLOL 5 MG TABLET PO SCH ×2 (08:33→21:34)
[2017-02-06] MEDS: DILTIAZEM CD 120 MG CAPSULE PO SCH (08:34)
[2017-02-06] MEDS: GABAPENTIN 600 MG TABLET PO SCH ×3 (08:34→21:35)
[2017-02-06] MEDS: MULTIVITAMIN (CENTRUM) TABLET PO SCH (08:34)
[2017-02-06] MEDS: PANTOPRAZOLE 40 MG VIAL IV SCH (08:34)
[2017-02-06] MEDS: POLYETHYLENE GLYCOL POWDER 17 GM PACK PO PRN (08:35)
[2017-02-06] MEDS: FUROSEMIDE 20 MG TABLET PO SCH (16:45)
[2017-02-06] MEDS: LOVASTATIN 20 MG TABLET PO SCH (16:47)
[2017-02-06] MEDS: DILTIAZEM CD 180 MG CAPSULE PO SCH (21:32)
[2017-02-07 05:04] LABS: Basophils % 0.2 % (0.0-0.8); Eosinophils # 0.3 10*3/uL (0.0-0.87); Eosinophils % 2.7 % (0.00-10.9); Hematocrit 27.4 VOL% (35.7-47.0); Hemoglobin 9.3 GM/DL (12.0-16.0); Immature Granulocytes Absolute 0.11 #; Lymphocytes # 2.1 10*3/uL (1.4-4.0); Lymphocytes % 18.7 % (21.3-54.2); Mean Corpuscular HGB Conc 33.9 GM/DL (32-36); Mean Corpuscular Hemoglobin 34 PG (27-34); Mean Corpuscular Volume 98.9 FL (87-102); Mean Platelet Volume 9.5 FL (9.6-12.0); Monocytes # 1.3 10*3/uL (0.11-0.8); Monocytes % 11.9 % (1.7-12.7); Neutrophils # 7.4 10*3/uL (1.4-7.4); Neutrophils % 65.5 % (38.7-73.9); Platelet Count 298 T/CUMM (130-400); Red Blood Count 2.77 MC/CUMM (3.8-5.5); Red Cell Distribution Width 13.5 % (9.3-17.3); White Blood Count 11.3 T/CUMM (4-12)
[2017-02-07 05:24] LABS: Calcium 8.4 MG/DL (8.5-10.1); Osmolality,Calculated 278.7 MOS/KG (273-304); Potassium 3.9 MMOL/L (3.5-5.1)
[2017-02-07] MEDS: INSULIN REGULAR 100 UNIT/ML SUBCUT SCH ×4 (08:33→22:33)
[2017-02-07] MEDS: BISOPROLOL 5 MG TABLET PO SCH ×2 (09:04→22:31)
[2017-02-07] MEDS: MULTIVITAMIN (CENTRUM) TABLET PO SCH (09:04)
[2017-02-07] MEDS: GABAPENTIN 600 MG TABLET PO SCH ×3 (09:05→22:32)
[2017-02-07] MEDS: DILTIAZEM CD 180 MG CAPSULE PO SCH (09:05)
[2017-02-07] MEDS: FUROSEMIDE 20 MG TABLET PO SCH (09:05)
[2017-02-07] MEDS: PANTOPRAZOLE 40 MG VIAL IV SCH (09:05)
[2017-02-07] MEDS: POLYETHYLENE GLYCOL POWDER 17 GM PACK PO PRN (09:06)
[2017-02-07] MEDS: PANTOPRAZOLE 40 MG TABLET PO SCH (10:10)
[2017-02-07] MEDS: LOVASTATIN 20 MG TABLET PO SCH (16:15)
[2017-02-07] MEDS: APIXABAN 5 MG TABLET PO SCH (22:32)
[2017-02-07] MEDS: DILTIAZEM CD 240 MG CAPSULE PO SCH (22:32)
[2017-02-08 05:29] LABS: Basophils % 0.4 % (0.0-0.8); Eosinophils # 0.3 10*3/uL (0.0-0.87); Eosinophils % 2.8 % (0.00-10.9); Hematocrit 26.1 VOL% (35.7-47.0); Immature Granulocytes % 0.8 %; Immature Granulocytes Absolute 0.09 #; Lymphocytes # 2.2 10*3/uL (1.4-4.0); Lymphocytes % 19.7 % (21.3-54.2); Mean Corpuscular HGB Conc 34.5 GM/DL (32-36); Mean Corpuscular Hemoglobin 34 PG (27-34); Mean Corpuscular Volume 97.8 FL (87-102); Mean Platelet Volume 9.7 FL (9.6-12.0); Monocytes # 1.3 10*3/uL (0.11-0.8); Monocytes % 11.7 % (1.7-12.7); Neutrophils # 7.2 10*3/uL (1.4-7.4); Neutrophils % 64.6 % (38.7-73.9); Platelet Count 306 T/CUMM (130-400); Red Blood Count 2.67 MC/CUMM (3.8-5.5); Red Cell Distribution Width 13.8 % (9.3-17.3); White Blood Count 11.2 T/CUMM (4-12)
[2017-02-08 05:46] LABS: Calcium 8.5 MG/DL (8.5-10.1); Osmolality,Calculated 280.5 MOS/KG (273-304); Potassium 3.9 MMOL/L (3.5-5.1)
[2017-02-08] MEDS: INSULIN REGULAR 100 UNIT/ML SUBCUT SCH ×4 (09:30→21:21)
[2017-02-08] MEDS: GABAPENTIN 600 MG TABLET PO SCH ×3 (09:48→21:22)
[2017-02-08] MEDS: DILTIAZEM CD 240 MG CAPSULE PO SCH ×2 (09:49→21:22)
[2017-02-08] MEDS: PANTOPRAZOLE 40 MG TABLET PO SCH (09:50)
[2017-02-08] MEDS: FUROSEMIDE 20 MG TABLET PO SCH (09:50)
[2017-02-08] MEDS: MULTIVITAMIN (CENTRUM) TABLET PO SCH (09:50)
[2017-02-08] MEDS: APIXABAN 5 MG TABLET PO SCH ×2 (09:50→21:22)
[2017-02-08] MEDS: BISOPROLOL 5 MG TABLET PO SCH ×2 (09:51→21:22)
[2017-02-08] MEDS: metFORMIN 500 MG TABLET PO SCH (16:30)
[2017-02-08] MEDS: LOVASTATIN 20 MG TABLET PO SCH (16:31)
[2017-02-09] MEDS: INSULIN REGULAR 100 UNIT/ML SUBCUT SCH ×4 (08:35→21:13)
[2017-02-09] MEDS: DILTIAZEM CD 240 MG CAPSULE PO SCH ×2 (09:07→21:13)
[2017-02-09] MEDS: GABAPENTIN 600 MG TABLET PO SCH ×3 (09:07→21:13)
[2017-02-09] MEDS: PANTOPRAZOLE 40 MG TABLET PO SCH (09:07)
[2017-02-09] MEDS: APIXABAN 5 MG TABLET PO SCH ×2 (09:07→21:13)
[2017-02-09] MEDS: BISOPROLOL 5 MG TABLET PO SCH ×2 (09:07→21:13)
[2017-02-09] MEDS: MULTIVITAMIN (CENTRUM) TABLET PO SCH (09:07)
[2017-02-09] MEDS: FUROSEMIDE 20 MG TABLET PO SCH (09:07)
[2017-02-09] MEDS: POLYETHYLENE GLYCOL POWDER 17 GM PACK PO PRN (09:12)
[2017-02-09] MEDS: metFORMIN 500 MG TABLET PO SCH (16:27)
[2017-02-09] MEDS: LOVASTATIN 20 MG TABLET PO SCH (16:27)
[2017-02-09] MEDS: traMADol 50 MG TABLET PO PRN (21:12)
[2017-02-10 06:14] LABS: Basophils % 0.4 % (0.0-0.8); Eosinophils # 0.3 10*3/uL (0.0-0.87); Eosinophils % 2.2 % (0.00-10.9); Hematocrit 26.4 VOL% (35.7-47.0); Hemoglobin 8.7 GM/DL (12.0-16.0); Immature Granulocytes % 0.8 %; Immature Granulocytes Absolute 0.09 #; Lymphocytes # 1.9 10*3/uL (1.4-4.0); Mean Corpuscular Hemoglobin 33 PG (27-34); Mean Corpuscular Volume 99.2 FL (87-102); Mean Platelet Volume 9.1 FL (9.6-12.0); Monocytes # 1.3 10*3/uL (0.11-0.8); Monocytes % 11.8 % (1.7-12.7); Neutrophils # 7.6 10*3/uL (1.4-7.4); Neutrophils % 67.8 % (38.7-73.9); Platelet Count 281 T/CUMM (130-400); Red Blood Count 2.66 MC/CUMM (3.8-5.5); Red Cell Distribution Width 13.8 % (9.3-17.3); White Blood Count 11.2 T/CUMM (4-12)
[2017-02-10 06:52] LABS: Calcium 8.7 MG/DL (8.5-10.1); Osmolality,Calculated 281.7 MOS/KG (273-304); Potassium 4.4 MMOL/L (3.5-5.1)
[2017-02-10] MEDS: INSULIN REGULAR 100 UNIT/ML SUBCUT SCH ×2 (08:39→13:31)
[2017-02-10] MEDS: BISOPROLOL 5 MG TABLET PO SCH (08:42)
[2017-02-10] MEDS: APIXABAN 5 MG TABLET PO SCH (08:42)
[2017-02-10] MEDS: GABAPENTIN 600 MG TABLET PO SCH ×2 (08:42→11:05)
[2017-02-10] MEDS: MULTIVITAMIN (CENTRUM) TABLET PO SCH (08:42)
[2017-02-10] MEDS: FUROSEMIDE 20 MG TABLET PO SCH (08:42)
[2017-02-10] MEDS: DILTIAZEM CD 240 MG CAPSULE PO SCH (08:43)
[2017-02-10] MEDS: PANTOPRAZOLE 40 MG TABLET PO SCH (08:43)
[2017-02-10] MEDS: POLYETHYLENE GLYCOL POWDER 17 GM PACK PO PRN (08:43)
[2017-02-10] MEDS: traMADol 50 MG TABLET PO PRN (08:50)
[2017-02-10 13:34] VITALS: BP 128/63
== END 2017-02-10 14:02 | disposition swing bed (61) | DRG 813 ==
LOC: N.ED 10:41 → N.EDINP 15:02 → N.2E 16:23 → N.CC 22:00 → N.TELES 02-05 16:26
PROVIDERS: ADMIT Internal Medicine; ATTEND Internal Medicine

== ENCOUNTER 2017-02-14 11:53 | Inpatient (IN) ==
[2017-02-14 13:19] LABS: Basophils % 0.1 % (0.0-0.8); Eosinophils # 0.1 10*3/uL (0.0-0.87); Eosinophils % 0.5 % (0.00-10.9); Hematocrit 27.7 VOL% (35.7-47.0); Hemoglobin 9.4 GM/DL (12.0-16.0); Immature Granulocytes % 0.4 %; Immature Granulocytes Absolute 0.06 #; Lymphocytes # 1.8 10*3/uL (1.4-4.0); Lymphocytes % 13.7 % (21.3-54.2); Mean Corpuscular HGB Conc 33.9 GM/DL (32-36); Mean Corpuscular Hemoglobin 33 PG (27-34); Mean Corpuscular Volume 98.2 FL (87-102); Mean Platelet Volume 9.1 FL (9.6-12.0); Monocytes # 1.2 10*3/uL (0.11-0.8); Monocytes % 8.9 % (1.7-12.7); Neutrophils # 10.2 10*3/uL (1.4-7.4); Neutrophils % 76.4 % (38.7-73.9); Platelet Count 318 T/CUMM (130-400); Red Blood Count 2.82 MC/CUMM (3.8-5.5); Red Cell Distribution Width 13.9 % (9.3-17.3); White Blood Count 13.4 T/CUMM (4-12)
[2017-02-14 13:44] LABS: Albumin 3.1 G/DL (3.4-5.0); Bilirubin,Total 0.6 MG/DL (0.2-1.0); Calcium 9.1 MG/DL (8.5-10.1); Osmolality,Calculated 277.1 MOS/KG (273-304); Potassium 3.5 MMOL/L (3.5-5.1); Total Protein 7.7 G/DL (6.4-8.3)
[2017-02-14] MEDS ORDERED: diphenhydrAMINE CAP 25 MG CAPSULE PO PRN (16:37)
[2017-02-14] MEDS ORDERED: guaiFENesin/DM ER 600-30 MG TABLET PO PRN (16:37)
[2017-02-14] MEDS ORDERED: ONDANSETRON 4 MG/2 ML VIAL IV PRN (16:37)
[2017-02-14] MEDS ORDERED: DOCUSATE SODIUM 100 MG CAPSULE PO PRN (16:37)
[2017-02-14] MEDS ORDERED: ACETAMINOPHEN 325 MG TABLET PO PRN (16:37)
[2017-02-14] MEDS ORDERED: MORPHINE 2 MG/1 ML SYRINGE IV PRN (16:37)
[2017-02-14] MEDS ORDERED: LORATADINE 10 MG TABLET PO PRN (16:40)
[2017-02-14] MEDS: metFORMIN 500 MG TABLET PO SCH (21:00)
[2017-02-14] MEDS: LOVASTATIN 20 MG TABLET PO SCH (21:00)
[2017-02-14] MEDS: BISOPROLOL 5 MG TABLET PO SCH (21:00)
[2017-02-14] MEDS: CALCIUM (CARBONATE)/VITAMIN D 600 MG-400 UNIT TABLET PO SCH (21:00)
[2017-02-14] MEDS: MULTIVITAMIN (CENTRUM) TABLET PO SCH (21:37)
[2017-02-14] MEDS: CYANOCOBALAMIN 500 MCG TABLET PO SCH (21:37)
[2017-02-14] MEDS: PANTOPRAZOLE 40 MG TABLET PO SCH (21:38)
[2017-02-14] MEDS: POLYETHYLENE GLYCOL POWDER 17 GM PACK PO SCH (21:38)
[2017-02-14] MEDS ORDERED: FUROSEMIDE 40 MG/4 ML VIAL ONE (21:43)
[2017-02-14] MEDS ORDERED: APIXABAN 5 MG TABLET ONE (21:43)
[2017-02-14] MEDS ORDERED: DILTIAZEM CD 120 MG CAPSULE PO ONE (21:43)
[2017-02-14] MEDS: APIXABAN 5 MG TABLET PO SCH (21:50)
[2017-02-14] MEDS: DILTIAZEM CD 240 MG CAPSULE PO SCH (21:50)
[2017-02-14] MEDS: FUROSEMIDE 40 MG/4 ML VIAL IV SCH (21:50)
[2017-02-15] MEDS: traMADol 50 MG TABLET PO PRN ×2 (04:42→12:01)
[2017-02-15 05:06] LABS: Basophils % 0.3 % (0.0-0.8); Eosinophils # 0.2 10*3/uL (0.0-0.87); Eosinophils % 2.5 % (0.00-10.9); Hemoglobin 9.4 GM/DL (12.0-16.0); Immature Granulocytes % 0.5 %; Immature Granulocytes Absolute 0.05 #; Lymphocytes # 1.7 10*3/uL (1.4-4.0); Lymphocytes % 17.7 % (21.3-54.2); Mean Corpuscular HGB Conc 33.6 GM/DL (32-36); Mean Corpuscular Hemoglobin 33 PG (27-34); Mean Corpuscular Volume 97.2 FL (87-102); Mean Platelet Volume 9.4 FL (9.6-12.0); Monocytes # 1.1 10*3/uL (0.11-0.8); Monocytes % 11.5 % (1.7-12.7); Neutrophils # 6.5 10*3/uL (1.4-7.4); Neutrophils % 67.5 % (38.7-73.9); Platelet Count 333 T/CUMM (130-400); Red Blood Count 2.88 MC/CUMM (3.8-5.5); Red Cell Distribution Width 13.9 % (9.3-17.3); White Blood Count 9.7 T/CUMM (4-12)
[2017-02-15] MEDS: FUROSEMIDE 40 MG/4 ML VIAL IV SCH (05:38)
[2017-02-15 05:49] LABS: Calcium 8.8 MG/DL (8.5-10.1); Magnesium 2.2 MG/DL (1.8-2.4); Osmolality,Calculated 283.7 MOS/KG (273-304); Potassium 3.6 MMOL/L (3.5-5.1)
[2017-02-15] MEDS: POLYETHYLENE GLYCOL POWDER 17 GM PACK PO SCH (10:04)
[2017-02-15] MEDS: APIXABAN 5 MG TABLET PO SCH ×2 (10:05→22:45)
[2017-02-15] MEDS: CALCIUM (CARBONATE)/VITAMIN D 600 MG-400 UNIT TABLET PO SCH (10:05)
[2017-02-15] MEDS: MULTIVITAMIN (CENTRUM) TABLET PO SCH (10:05)
[2017-02-15] MEDS: PANTOPRAZOLE 40 MG TABLET PO SCH ×2 (10:05→10:06)
[2017-02-15] MEDS: BISOPROLOL 5 MG TABLET PO SCH ×2 (10:05→22:38)
[2017-02-15] MEDS: DILTIAZEM CD 240 MG CAPSULE PO SCH ×2 (10:07→22:44)
[2017-02-15] MEDS: CYANOCOBALAMIN 500 MCG TABLET PO SCH (10:07)
[2017-02-15] MEDS ORDERED: TUBERCULIN SKIN TEST 0.1 ML SYRINGE INTRADERM ONE (13:41)
[2017-02-15] MEDS: FUROSEMIDE 40 MG TABLET PO SCH (14:26)
[2017-02-15] MEDS: LOVASTATIN 20 MG TABLET PO SCH (18:27)
[2017-02-15] MEDS: metFORMIN 500 MG TABLET PO SCH (18:27)
[2017-02-15] MEDS: GABAPENTIN 600 MG TABLET PO SCH (22:37)
[2017-02-16 04:46] LABS: Basophils % 0.4 % (0.0-0.8); Eosinophils # 0.4 10*3/uL (0.0-0.87); Eosinophils % 3.7 % (0.00-10.9); Hematocrit 27.3 VOL% (35.7-47.0); Hemoglobin 9.2 GM/DL (12.0-16.0); Immature Granulocytes % 0.5 %; Immature Granulocytes Absolute 0.05 #; Lymphocytes % 20.5 % (21.3-54.2); Mean Corpuscular HGB Conc 33.7 GM/DL (32-36); Mean Corpuscular Hemoglobin 33 PG (27-34); Mean Corpuscular Volume 97.2 FL (87-102); Mean Platelet Volume 9.4 FL (9.6-12.0); Monocytes # 1.3 10*3/uL (0.11-0.8); Monocytes % 13.3 % (1.7-12.7); Neutrophils % 61.6 % (38.7-73.9); Platelet Count 338 T/CUMM (130-400); Red Blood Count 2.81 MC/CUMM (3.8-5.5); Red Cell Distribution Width 13.8 % (9.3-17.3); White Blood Count 9.8 T/CUMM (4-12)
[2017-02-16 05:17] LABS: Calcium 8.8 MG/DL (8.5-10.1); Osmolality,Calculated 281.7 MOS/KG (273-304); Potassium 3.6 MMOL/L (3.5-5.1)
[2017-02-16] MEDS ORDERED: INDOMETHACIN 25 MG CAPSULE PO SCH (09:00)
[2017-02-16] MEDS: POLYETHYLENE GLYCOL POWDER 17 GM PACK PO SCH (09:55)
[2017-02-16] MEDS: GABAPENTIN 600 MG TABLET PO SCH ×3 (09:56→22:34)
[2017-02-16] MEDS: CYANOCOBALAMIN 500 MCG TABLET PO SCH (09:56)
[2017-02-16] MEDS: FUROSEMIDE 40 MG TABLET PO SCH (09:56)
[2017-02-16] MEDS: predniSONE 50 MG TABLET PO SCH (09:56)
[2017-02-16] MEDS: BISOPROLOL 5 MG TABLET PO SCH ×2 (09:56→22:34)
[2017-02-16] MEDS: DILTIAZEM CD 240 MG CAPSULE PO SCH ×2 (09:56→22:34)
[2017-02-16] MEDS: APIXABAN 5 MG TABLET PO SCH ×2 (09:56→22:34)
[2017-02-16] MEDS: CALCIUM (CARBONATE)/VITAMIN D 600 MG-400 UNIT TABLET PO SCH (09:57)
[2017-02-16] MEDS: ALLOPURINOL 100 MG TABLET PO SCH ×2 (09:57→22:35)
[2017-02-16] MEDS: MULTIVITAMIN (CENTRUM) TABLET PO SCH (09:57)
[2017-02-16] MEDS: PANTOPRAZOLE 40 MG TABLET PO SCH ×2 (09:57)
[2017-02-16] MEDS: metFORMIN 500 MG TABLET PO SCH (16:45)
[2017-02-16] MEDS: LOVASTATIN 20 MG TABLET PO SCH (16:46)
[2017-02-17 06:03] LABS: Calcium 9.5 MG/DL (8.5-10.1); Potassium 3.9 MMOL/L (3.5-5.1)
[2017-02-17] MEDS: DILTIAZEM CD 240 MG CAPSULE PO SCH (09:54)
[2017-02-17] MEDS: BISOPROLOL 5 MG TABLET PO SCH (09:54)
[2017-02-17] MEDS: GABAPENTIN 600 MG TABLET PO SCH ×2 (09:54→14:45)
[2017-02-17] MEDS: CYANOCOBALAMIN 500 MCG TABLET PO SCH (09:54)
[2017-02-17] MEDS: PANTOPRAZOLE 40 MG TABLET PO SCH ×2 (09:54→09:55)
[2017-02-17] MEDS: MULTIVITAMIN (CENTRUM) TABLET PO SCH (09:54)
[2017-02-17] MEDS: APIXABAN 5 MG TABLET PO SCH (09:54)
[2017-02-17] MEDS: POLYETHYLENE GLYCOL POWDER 17 GM PACK PO SCH (09:55)
[2017-02-17] MEDS: CALCIUM (CARBONATE)/VITAMIN D 600 MG-400 UNIT TABLET PO SCH (09:55)
[2017-02-17] MEDS: ALLOPURINOL 100 MG TABLET PO SCH (09:55)
[2017-02-17] MEDS: FUROSEMIDE 40 MG TABLET PO SCH (09:55)
[2017-02-17] MEDS: predniSONE 50 MG TABLET PO SCH (09:57)
[2017-02-17 12:08] VITALS: BP 122/73
== END 2017-02-17 15:25 | disposition home health service (06) | DRG 293 ==
LOC: EDUNIT# → N.ED 11:53 → N.EDINP 14:59 → N.TELES 02-15 00:22
PROVIDERS: ADMIT Internal Medicine; ATTEND Internal Medicine

== ENCOUNTER 2017-08-17 02:53 | Inpatient (IN) ==
[2017-08-17 03:44] LABS: Basophils # 0.1 10*3/uL (0.0-0.2); Basophils % 0.4 % (0.0-0.8); Eosinophils # 0.3 10*3/uL (0.0-0.87); Eosinophils % 1.9 % (0.00-10.9); Immature Granulocytes % 0.8 %; Immature Granulocytes Absolute 0.11 #; Lymphocytes # 1.8 10*3/uL (1.4-4.0); Lymphocytes % 12.9 % (21.3-54.2); Mean Corpuscular HGB Conc 33.3 GM/DL (32-36); Mean Corpuscular Hemoglobin 33 PG (27-34); Mean Platelet Volume 9.8 FL (9.6-12.0); Monocytes # 1.4 10*3/uL (0.11-0.8); Monocytes % 10.3 % (1.7-12.7); Neutrophils # 10.3 10*3/uL (1.4-7.4); Neutrophils % 73.7 % (38.7-73.9); Platelet Count 230 T/CUMM (130-400); Red Cell Distribution Width 14.6 % (9.3-17.3); White Blood Count 13.9 T/CUMM (4-12)
[2017-08-17 04:02] LABS: INR 1.1; PT Patient Result 11.5 SECS
[2017-08-17 04:12] LABS: Alanine Aminotransferase 36 U/L (13-56); Albumin 3.8 G/DL (3.4-5.0); Alkaline Phosphatase 59 U/L (45-117); Aspartate Amino Transferase 23 U/L (0-37); Blood Urea Nitrogen 39 MG/DL (7-18); Calcium 8.9 MG/DL (8.5-10.1); Glucose 106 MG/DL (74-106); Osmolality,Calculated 283.7 MOS/KG (273-304); Potassium 4.7 MMOL/L (3.5-5.1); Sodium 138 MMOL/L (136-145); Total Protein 7.9 G/DL (6.4-8.3); Troponin I Only < 0.015 NG/ML (0.00-0.045)
[2017-08-17] MEDS ORDERED: FUROSEMIDE 40 MG/4 ML VIAL IV STA (04:16)
[2017-08-17] MEDS ORDERED: ACETAMINOPHEN 325 MG TABLET PO PRN (05:23)
[2017-08-17] MEDS ORDERED: ALBUTEROL 2.5 MG/3 ML NEB RESP TX PRN (05:23)
[2017-08-17] MEDS ORDERED: GLUCAGON 1 MG VIAL IM PRN (05:31)
[2017-08-17] MEDS ORDERED: DEXTROSE 50% 25 GM/50 ML VIAL IV PRN (05:31)
[2017-08-17 07:52] LABS: Albumin 3.4 G/DL (3.4-5.0); Calcium 9.2 MG/DL (8.5-10.1); Osmolality,Calculated 284.5 MOS/KG (273-304); Potassium 4.2 MMOL/L (3.5-5.1); Total Protein 7.7 G/DL (6.4-8.3)
[2017-08-17] MEDS: INSULIN REGULAR 100 UNIT/ML SUBCUT SCH ×4 (09:05→21:37)
[2017-08-17] MEDS: LEVOTHYROXINE 75 MCG TABLET PO SCH (09:05)
[2017-08-17] MEDS: PANTOPRAZOLE 40 MG TABLET PO SCH (09:41)
[2017-08-17] MEDS: APIXABAN 5 MG TABLET PO SCH ×2 (09:42→21:39)
[2017-08-17] MEDS: ASPIRIN CHEW 81 MG TABLET PO SCH (09:43)
[2017-08-17] MEDS: POLYETHYLENE GLYCOL POWDER 17 GM PACK PO SCH (09:45)
[2017-08-17] MEDS: GABAPENTIN 600 MG TABLET PO SCH ×3 (09:55→21:41)
[2017-08-17] MEDS: AMIODARONE 200 MG TABLET PO SCH (09:56)
[2017-08-17] MEDS: CYANOCOBALAMIN 500 MCG TABLET PO SCH (09:56)
[2017-08-17] MEDS: BISOPROLOL 5 MG TABLET PO SCH ×2 (09:57→21:39)
[2017-08-17] MEDS: CALCIUM (CARBONATE)/VITAMIN D 600 MG-400 UNIT TABLET PO SCH (09:57)
[2017-08-17 11:08] LABS: ABG HCO3 21.8 MMOL/L (20-26); ABG Oxygen Saturation 96.1 % (95-100); ABG PCO2 29.9 MM HG (35-48); ABG PH 7.481 (7.35-7.45); ABG PO2 88.9 MM HG (80-95); ABG TCO2 22.7 MMOL/L (23-27); Allen Test Positive
[2017-08-17] MEDS ORDERED: GABAPENTIN 300 MG CAPSULE PO SCH (12:00)
[2017-08-17] MEDS: FUROSEMIDE 40 MG/4 ML VIAL IV SCH ×2 (15:17→16:15)
[2017-08-17] MEDS: LOVASTATIN 20 MG TABLET PO SCH (16:51)
[2017-08-18 05:46] LABS: Basophils % 0.5 % (0.0-0.8); Eosinophils # 0.4 10*3/uL (0.0-0.87); Eosinophils % 4.5 % (0.00-10.9); Hematocrit 27.6 VOL% (35.7-47.0); Hemoglobin 9.4 GM/DL (12.0-16.0); Immature Granulocytes % 0.3 %; Immature Granulocytes Absolute 0.02 #; Lymphocytes # 2.2 10*3/uL (1.4-4.0); Lymphocytes % 27.5 % (21.3-54.2); Mean Corpuscular HGB Conc 34.1 GM/DL (32-36); Mean Corpuscular Hemoglobin 34 PG (27-34); Mean Corpuscular Volume 98.6 FL (87-102); Mean Platelet Volume 10.3 FL (9.6-12.0); Monocytes # 1.1 10*3/uL (0.11-0.8); Monocytes % 13.6 % (1.7-12.7); Neutrophils # 4.2 10*3/uL (1.4-7.4); Neutrophils % 53.6 % (38.7-73.9); Platelet Count 221 T/CUMM (130-400); Red Cell Distribution Width 14.6 % (9.3-17.3); White Blood Count 7.9 T/CUMM (4-12)
[2017-08-18 05:58] LABS: Calcium 8.4 MG/DL (8.5-10.1); Osmolality,Calculated 288.4 MOS/KG (273-304); Potassium 3.7 MMOL/L (3.5-5.1)
[2017-08-18] MEDS: LEVOTHYROXINE 75 MCG TABLET PO SCH (06:24)
[2017-08-18] MEDS: INSULIN REGULAR 100 UNIT/ML SUBCUT SCH ×4 (07:40→20:57)
[2017-08-18] MEDS: POLYETHYLENE GLYCOL POWDER 17 GM PACK PO SCH (09:26)
[2017-08-18] MEDS: CYANOCOBALAMIN 500 MCG TABLET PO SCH (09:26)
[2017-08-18] MEDS: AMIODARONE 200 MG TABLET PO SCH (09:27)
[2017-08-18] MEDS: GABAPENTIN 600 MG TABLET PO SCH ×3 (09:27→20:57)
[2017-08-18] MEDS: CALCIUM (CARBONATE)/VITAMIN D 600 MG-400 UNIT TABLET PO SCH (09:27)
[2017-08-18] MEDS: PANTOPRAZOLE 40 MG TABLET PO SCH (09:27)
[2017-08-18] MEDS: APIXABAN 5 MG TABLET PO SCH ×2 (09:27→20:52)
[2017-08-18] MEDS: ASPIRIN CHEW 81 MG TABLET PO SCH (09:27)
[2017-08-18] MEDS: FUROSEMIDE 40 MG/4 ML VIAL IV SCH ×2 (09:28→15:44)
[2017-08-18] MEDS: BISOPROLOL 5 MG TABLET PO SCH ×2 (09:42→20:52)
[2017-08-18] MEDS: LOVASTATIN 20 MG TABLET PO SCH (17:16)
[2017-08-19] MEDS: LEVOTHYROXINE 75 MCG TABLET PO SCH (06:20)
[2017-08-19] MEDS: FUROSEMIDE 40 MG/4 ML VIAL IV SCH ×2 (09:07→16:30)
[2017-08-19] MEDS: CYANOCOBALAMIN 500 MCG TABLET PO SCH (09:07)
[2017-08-19] MEDS: POLYETHYLENE GLYCOL POWDER 17 GM PACK PO SCH (09:07)
[2017-08-19] MEDS: CALCIUM (CARBONATE)/VITAMIN D 600 MG-400 UNIT TABLET PO SCH (09:08)
[2017-08-19] MEDS: ASPIRIN CHEW 81 MG TABLET PO SCH (09:08)
[2017-08-19] MEDS: GABAPENTIN 600 MG TABLET PO SCH ×3 (09:08→21:14)
[2017-08-19] MEDS: AMIODARONE 200 MG TABLET PO SCH (09:08)
[2017-08-19] MEDS: APIXABAN 5 MG TABLET PO SCH ×2 (09:08→21:14)
[2017-08-19] MEDS: BISOPROLOL 5 MG TABLET PO SCH ×2 (09:08→21:14)
[2017-08-19] MEDS: PANTOPRAZOLE 40 MG TABLET PO SCH (09:09)
[2017-08-19] MEDS ORDERED: SODIUM CHLORIDE 0.65% NASAL SPRAY 45 ML BOTTLE BOTH NARES PRN (11:18)
[2017-08-19] MEDS: INSULIN REGULAR 100 UNIT/ML SUBCUT SCH ×4 (11:27→21:14)
[2017-08-19] MEDS: LOVASTATIN 20 MG TABLET PO SCH (16:30)
[2017-08-20 05:39] LABS: Basophils % 0.5 % (0.0-0.8); Eosinophils # 0.4 10*3/uL (0.0-0.87); Eosinophils % 5.9 % (0.00-10.9); Hematocrit 29.1 VOL% (35.7-47.0); Hemoglobin 9.6 GM/DL (12.0-16.0); Immature Granulocytes % 0.3 %; Immature Granulocytes Absolute 0.02 #; Lymphocytes % 31.4 % (21.3-54.2); Mean Corpuscular Hemoglobin 33 PG (27-34); Mean Corpuscular Volume 101.4 FL (87-102); Mean Platelet Volume 9.9 FL (9.6-12.0); Monocytes % 15.6 % (1.7-12.7); Neutrophils % 46.3 % (38.7-73.9); Platelet Count 232 T/CUMM (130-400); Red Blood Count 2.87 MC/CUMM (3.8-5.5); Red Cell Distribution Width 14.6 % (9.3-17.3); White Blood Count 6.4 T/CUMM (4-12)
[2017-08-20 06:13] LABS: Eosinophils 10 % (0-10); Hypochromasia 1+; Lymphocytes 36 % (20-55); Platelet Estimate Adequate; Segmented Neutrophils 42 % (50-85); Total Cells Counted 100
[2017-08-20 06:14] LABS: Calcium 8.2 MG/DL (8.5-10.1); Osmolality,Calculated 289.1 MOS/KG (273-304); Potassium 3.7 MMOL/L (3.5-5.1)
[2017-08-20 06:15] LABS: Ovalocytes Slight
[2017-08-20] MEDS: LEVOTHYROXINE 75 MCG TABLET PO SCH (07:10)
[2017-08-20] MEDS: INSULIN REGULAR 100 UNIT/ML SUBCUT SCH ×2 (08:16→11:27)
[2017-08-20] MEDS: POLYETHYLENE GLYCOL POWDER 17 GM PACK PO SCH (08:20)
[2017-08-20] MEDS: FUROSEMIDE 40 MG/4 ML VIAL IV SCH (08:20)
[2017-08-20] MEDS: PANTOPRAZOLE 40 MG TABLET PO SCH (08:22)
[2017-08-20] MEDS: BISOPROLOL 5 MG TABLET PO SCH (08:23)
[2017-08-20] MEDS: CYANOCOBALAMIN 500 MCG TABLET PO SCH (08:25)
[2017-08-20] MEDS: GABAPENTIN 600 MG TABLET PO SCH ×2 (08:26→11:58)
[2017-08-20] MEDS: CALCIUM (CARBONATE)/VITAMIN D 600 MG-400 UNIT TABLET PO SCH (08:27)
[2017-08-20] MEDS: APIXABAN 5 MG TABLET PO SCH (08:27)
[2017-08-20] MEDS: AMIODARONE 200 MG TABLET PO SCH (08:28)
[2017-08-20] MEDS ORDERED: FLUTICASONE 50 MCG NASAL SPRAY 16 GM BOTTLE BOTH NARES SCH (09:30)
[2017-08-20] MEDS: ASPIRIN CHEW 81 MG TABLET PO SCH (09:53)
[2017-08-20 11:46] VITALS: BP 125/67
== END 2017-08-20 14:20 | disposition home health service (06) | DRG 291 ==
LOC: N.ED 02:53 → N.EDINP 05:24 → SUATTDRO 05:24 → N.EDINP 17:19 → N.2E 17:27
PROVIDERS: ADMIT Internal Medicine; ATTEND Internal Medicine